=== PATIENT | male | born 1960 | race Caucasian/White ===

== ENCOUNTER 2017-09-16 13:53 | Emergency (ER) | payer OTHER ==
[~2017-09-16] VITALS: Ht 172.7 cm; Wt 81.7 kg
[2017-09-16] MEDS ORDERED: NEURONTIN600 MG PO (13:58)
[2017-09-16] MEDS ORDERED: LISINOPRIL10 MG PO (13:59)
[2017-09-16] MEDS ORDERED: NEURONTIN 300300 M1 PO (13:59)
[2017-09-16] MEDS ORDERED: METFORMIN HCL500 MG PO (14:00)
[2017-09-16] MEDS ORDERED: GLIPIZIDE 10 MG10 MG PO (14:00)
[2017-09-16] MEDS ORDERED: IBUPROFEN 600600 M1 PO (14:43)
[2017-09-16] MEDS ORDERED: ULTRAM 50MG TAB50 MG PO (14:43)
== END 2017-09-16 14:50 | disposition home or self-care (01) ==
LOC: ER 13:53
DX: S63.8X2A Sprain of other part of left wrist and hand, initial encounter (principal); E11.40 Type 2 diabetes mellitus with diabetic neuropathy, unspecified; M06.9 Rheumatoid arthritis, unspecified; I10 Essential (primary) hypertension; W18.39XA Other fall on same level, initial encounter; Y93.89 Activity, other specified; Y92.89 Other specified places as the place of occurrence of the external cause; Y99.8 Other external cause status